=== PATIENT | female | born 1990 | race Caucasian/White ===

== ENCOUNTER 2018-10-18 06:01 | Emergency (ER) | payer BC | END 2018-10-18 08:50 | disposition home or self-care (01) | LOC: ED 06:01 ==

== ENCOUNTER 2020-12-29 07:25 | Day surgery (SDC) | payer OTHER ==
[~2020-12-29 07:25] MED LIST: Lactated Ringers 1,000 ML IV ONE; Sensorcaine 0.25% 10 ML ONE
[2020-12-29] MEDS ORDERED: CLINDAMYCIN-D5W 900 MG/50 ML*** 900 MG/50 ML BAG IV SCH (08:00)
[2020-12-29] MEDS ORDERED: Lactated Ringers 1,000 ML IV SCH (08:00)
[2020-12-29] MEDS ORDERED: SUBLIMAZE 100 MCG/2 ML ONE ×2 (09:33→10:50)
[2020-12-29] MEDS ORDERED: DIPRIVAN 200 MG/20 ML IV ONE (09:33)
[2020-12-29] MEDS ORDERED: Versed 2 MG/2 ML Injection ONE (09:34)
[2020-12-29] MEDS ORDERED: Zemuron 100 MG/10 ML ONE (09:59)
[2020-12-29] MEDS ORDERED: TORAdol 30 mg Injection ONE (10:08)
[2020-12-29] MEDS ORDERED: Zofran 4 MG/2 ML VIAL ONE (10:08)
[2020-12-29] MEDS ORDERED: Decadron 4 MG INJ ONE (10:08)
[2020-12-29] MEDS ORDERED: BRIDION 200MG/2ML IV ONE (10:24)
[2020-12-29 12:00] VITALS: BP 121/85; PULSE 86; O2SAT 100
--- NOTE | 2020-12-30 11:23 | OP ---
SURGERY DATE/TIME: 12/29/2020 1014 PREOPERATIVE DIAGNOSIS: Multiparity desiring tubal sterilization. POSTOPERATIVE DIAGNOSIS: Multiparity desiring tubal sterilization. PROCEDURE: Laparoscopic tubal sterilization via Falope ring application and bipolar use. SURGEON: Yosvany Harmon D.O. PARTITION ASSEMBLER: Efe Ge surgical scrub technologist. ANESTHESIA: General. ESTIMATED BLOOD LOSS: Minimal. COMPLICATIONS: None. INDICATIONS: The risks, benefits, indications and alternatives of the procedure were reviewed with the patient prior to the procedure. The patient understood the risk of infection, bleeding, bowel injury, bladder injury, ureteral injury, uterine perforation, possible ectopic , possible that may be associated with this procedure and desires to have this procedure as a possible means to alleviate her current medical condition. DESCRIPTION OF PROCEDURE AND FINDINGS: At this point the patient is taken to the operating room, given general sedation, placed in dorsal lithotomy position, prepped and draped in the usual sterile fashion. A weighted speculum is then placed in the patient's vagina and the anterior lip of the cervix is grasped with a single tooth tenaculum. Endocervical dilators were advanced through the endocervical canal as a means to dilate the cervix and the uterine manipulator was then inserted in through the endocervical canal as a means to manipulate the uterus. Attention was then turned to the patient's abdomen where a 5 mm skin incision was made in the umbilical fold. A 5 mm trocar and sleeve were advanced under direct visualization where pneumoperitoneum was obtained with 4 liters of CO2 gas. An additional incision was made approximately 2 cm above the symphysis pubis where an 8 mm incision made trocar and sleeve were advanced under direct visualization. A survey of the patient's pelvis appeared to be within normal limits with no gross abnormalities. The bilateral ovaries appeared to be within normal limits. The patient has a history of ovarian cystectomy in the past however both ovaries appear to be within normal limits. From this point the right fallopian tube was then identified and the Falope ring applicator was placed on the isthmic region of the right fallopian tube and the fallopian tube was then grasped and the Falope ring was released and was done so without complication with a good knuckle of tube that was noted. The same procedure was performed on the left tube. The Falope ring applicator was reloaded and placed on the isthmic region on the left tube. However, there was a small knuckle of tube that was noted and at this point the bipolar instrument was then used to coagulate three contiguous regions next to the Falope ring for further sterilization. From this point hemostasis was obtained. All instruments were removed from the patient's abdominal region and the incisions were closed with 4-0 Monocryl suture. The patient was then taken out of dorsal lithotomy position, was taken out of anesthesia and was then taken to the recovery room in stable condition. All instruments and laps were accounted for x2.
== END 2020-12-29 12:10 | disposition home or self-care (01) ==
LOC: SDC 07:25
PROVIDERS: ATTEND Obstetrics & Gynecology
DX: Z30.2 Encounter for sterilization (principal)
CPT/HCPCS: 84703; J1100; J1885; J2250; J2405; J2704; J3010

== ENCOUNTER 2022-01-24 07:27 | Emergency (ER) | payer OTHER ==
[2022-01-24] MEDS ORDERED: Sodium Chloride 0.9% 1000 ML 1,000 ML IV STA (07:49)
[2022-01-24] MEDS ORDERED: Zofran 4 MG/2 ML VIAL IV ONE (07:49)
[2022-01-24 07:56] VITALS: BP 107/78
--- NOTE | 2022-01-24 08:08 | ERPHSYRPT ---
- History of Present Illness Time Seen by Provider: 01/24/22 07:52 Physician History: Patient is a 31-year-old female diagnosed with the flu 3 days ago. Patient presents to our ED today complaining of generalized malaise, generalized weakness nausea. Patient states she went to work today and states her symptoms precluded her from completing her shift. Patient has been experiencing diarrhea and has mild dizziness for the past 2 days. No other neurological complaints. No numbness tingling or weakness. Patient ambulates with a normal gait pattern. No headache. No trauma. No active dizziness during the time of this physical examination. Symptoms are mild in intensity. No specific worsening or improving factors. Patient is otherwise healthy. No vomiting. No rash. Patient currently afebrile. Although patient states she was febrile at home. Patient appears well nontoxic conversant and in no acute distress. Portions of this note were created with voice recognition technology. There may be grammatical, spelling, punctuation or sound alike errors Timing/Duration: day(s) (3 days) Severity: moderate Modifying Factors: Improves With: nothing Associated Symptoms: denies symptoms Allergies/Adverse Reactions: Penicillins Allergy (Intermediate, Verified 01/24/22 07:52) Hives Hx Tetanus, Diphtheria Vaccination/Date Given: Yes Hx Influenza Vaccination/Date Given: No Hx Pneumococcal Vaccination/Date Given: No - Review of Systems Constitutional: No Symptoms, No Fever, No Chills Eyes: No Symptoms Ears, Nose, & Throat: No Symptoms Respiratory: No Symptoms, No Cough, No Dyspnea Cardiac: No Symptoms, No Chest Pain, No Edema, No Syncope Abdominal/Gastrointestinal: No Symptoms, No Abdominal Pain, No Nausea, No Vomiting, No Diarrhea Genitourinary Symptoms: No Symptoms, No Dysuria Musculoskeletal: No Symptoms, No Back Pain, No Neck Pain Skin: No Symptoms, No Rash Neurological: No Symptoms, No Dizziness, No Focal Weakness, No Sensory Changes Psychological: No Symptoms Endocrine: No Symptoms Hematologic/Lymphatic: No Symptoms Immunological/Allergic: No Symptoms All Other Systems: Reviewed and Negative - Past Medical History Pertinent Past Medical History: Yes Neurological History: No Pertinent History ENT History: No Pertinent History Cardiac History: No Pertinent History Respiratory History: No Pertinent History Endocrine Medical History: No Pertinent History Musculoskeletal History: No Pertinent History GI Medical History: No Pertinent History History: No Pertinent History Psycho-Social History: Bipolar, Depression Female Reproductive Disorders: No Pertinent History Other Medical History: 3 pregnancies, 1 miscarriage - Past Surgical History Past Surgical History: Yes Neuro Surgical History: No Pertinent History Cardiac: No Pertinent History Respiratory: No Pertinent History Gastrointestinal: No Pertinent History Genitourinary: No Pertinent History Musculoskeletal: No Pertinent History Female Surgical History: Other Other Surgical History: cyst removed from ovary - Social History Smoking Status: Current every day smoker How long have you smoked: 7 yrs Exposure to second hand smoke: Yes Alcohol Use: Socially Drug Use: none Patient Lives Alone: No Significant Family History: no pertinent family hx - Nursing Vital Signs Nursing Vital Signs: Initial Vital Signs Temperature 98.3 F 01/24/22 07:38 Pulse Rate 87 01/24/22 07:38 Blood Pressure 107/78 01/24/22 07:38 O2 Sat by Pulse Oximetry 100 01/24/22 07:38 Pain Scale Pain Intensity 0 - Physical Exam General Appearance: no apparent distress, alert Eye Exam: PERRL/EOMI, eyes nml inspection Ears, Nose, Throat Exam: normal ENT inspection, TMs normal, pharynx normal, moist mucous membranes Neck Exam: normal inspection, non-tender, supple, full range of motion Respiratory Exam: normal breath sounds, lungs clear, airway intact, No respiratory distress Cardiovascular Exam: regular rate/rhythm, normal heart sounds, normal peripheral pulses Gastrointestinal/Abdomen Exam: soft, normal bowel sounds, No tenderness, No mass Back Exam: normal inspection, normal range of motion, No CVA tenderness, No vertebral tenderness Extremity Exam: normal inspection, normal range of motion, pelvis stable Neurologic Exam: alert, oriented x 3, cooperative, normal mood/affect, nml cerebellar function, nml station & gait, sensation nml, No motor deficits Skin Exam: normal color, warm, dry, No rash Lymphatic Exam: No adenopathy SpO2 Interpretation: normal SpO2: 100 O2 Delivery: Room Air - Course Nursing assessment & vital signs reviewed: Yes Ordered Tests: Active Orders 24 hr Category Date Time Status IV Insertion STAT Care 01/24/22 07:49 Active UA W/RFX CULTURE Stat Lab 01/24/22 Ordered Medication Summary Discontinued Medications Generic Name Dose Route Start Last Admin Trade Name Freq PRN Reason Stop Dose Admin Sodium Chloride 1,000 mls @ 999 mls/hr 01/24/22 07:49 01/24/22 08:16 Sodium Chloride 0.9% 1000 Ml IV 01/24/22 08:49 999 mls/hr .Q1H1M STA Administration Sodium Chloride Confirm 01/24/22 08:14 Sodium Chloride 0.9% 1000 Ml Administered 01/24/22 08:15 Dose 1,000 mls @ ud .ROUTE .STK-MED ONE Ondansetron HCl 4 mg 01/24/22 07:49 01/24/22 08:17 Ondansetron Hcl 4 Mg/2 Ml Vial IV 01/24/22 07:50 4 mg STAT ONE Administration Ondansetron HCl Confirm 01/24/22 08:14 Ondansetron Hcl 4 Mg/2 Ml Vial Administered 01/24/22 08:15 Dose 4 mg .ROUTE .STK-MED ONE - Progress Progress: improved Progress Note: Patient reassessed. Patient currently asymptomatic. She feels well. She has no complaints. Will discharge patient home. Patient will be provided a work note. Patient to return to work on . Prescription for Zofran will be forwarded to patient's pharmacy. Patient voices no other complaints or concerns at this time. Patient agrees to follow-up with her primary care doctor within 48 hours for evaluation. Portions of this note were created with voice recognition technology. There may be grammatical, spelling, punctuation or sound alike errors 01/24/22 09:01 Counseled pt/family regarding: diagnosis, need for follow-up - Departure Departure Disposition: Home Clinical Impression: Influenza, Nausea Condition: Stable Critical Care Time: No Referrals: YAZMIN COTA MD [ACTIVE STAFF] - Follow up/PCP as directed Additional Instructions: Discharge/Care Plan LUZMA ROMERO was seen on 01/24/22 in the Emergency Room. The patient was counseled regarding Diagnosis,Lab results, Imaging studies, need for follow up and when to return to the Emergency Room. Prescriptions given: Discharge Note I have spoken with the patient and/or caregivers. I have explained the patient's condition, diagnosis and treatment plan based on the information available to me at this time. I have answered the patient's and/or caregiver's questions and addressed any concerns. The patient and/or caregivers have as good understanding of the patient's diagnosis, condition and treatment plan as can be expected at this point. The vital signs have been stable. The patient's condition is stable and appropriate for discharge from the emergency department. The patient will pursue further outpatient evaluation with the primary care physician or other designated or consulting physician as outlined in the discharge instructions. The patient and/or caregivers are agreeable to this plan of care and follow-up instructions have been explained in detail. The patient and/or caregivers have received these instruction. The patient/and or caregivers are aware that any significant change in condition or worsening of symptoms should prompt an immediate return to this or the closest emergency department or call 911. Forms: Work/School Release Form Prescriptions: Ondansetron ODT 4 MG [Zofran Odt 4 mg] 4 mg PO Q6H PRN PRN #10 tablet PRN Reason: Vomiting
[2022-01-24] MEDS ORDERED: Sodium Chloride 0.9% 1000 ML 1,000 ML ONE (08:14)
[2022-01-24] MEDS ORDERED: Zofran 4 MG/2 ML VIAL ONE (08:14)
[2022-01-24 09:49] LABS: Appearance CLEAR (CLEAR); Bilirubin NEGATIVE (NEGATIVE); Dipstick done @ ? MAIN LAB; Glucose NEGATIVE (NEGATIVE); Ketones NEGATIVE (NEGATIVE); Nitrite NEGATIVE (NEGATIVE); Ph 5.5 (5-6); Protein,Urine Dip NEGATIVE (Negative); RBC TRACE-INTACT Ery/ul (0-5); Specific Gravity >=1.030 (1.005-1.025); Urobilinogen 0.2 mg/dL (0-1)
[2022-01-24 09:56] LABS: Epithelial Cells RARE /HPF (FEW); Mucus MODERATE /HPF (NEGATIVE)
[2022-01-24 09:59] LABS: Urine Cultured Indicated? NO; WBC NONE SEEN /HPF (0-5)
[2022-01-24 10:03] VITALS: PULSE 77; O2SAT 97
== END 2022-01-24 10:04 | disposition home or self-care (01) ==
LOC: ED 07:27
DX: J11.1 Influenza due to unidentified influenza virus with other respiratory manifestations (principal); R11.0 Nausea; R53.1 Weakness; R53.83 Other fatigue; R19.7 Diarrhea, unspecified; R42 Dizziness and giddiness; Z72.0 Tobacco use
CPT/HCPCS: 81015; 96360; 96374; 99283; J2405